=== PATIENT | female | born 1975 | race African-American/Black ===

== ENCOUNTER 2021-02-27 04:59 | Day surgery (SDC) | payer BC, OTHER ==
[2021-02-26 10:10] VITALS: BMI 31.6
[2021-02-27 08:27] VITALS: BP 128/80; PULSE 87; TEMP 98.6
== END 2021-02-27 09:15 | disposition home or self-care (01) ==
LOC: JASUSAT 04:59
PROVIDERS: ATTEND Radiology Diagnostic Radiology
DX: Z53.8 Procedure and treatment not carried out for other reasons (principal)
CPT/HCPCS: 81025

== ENCOUNTER 2021-03-07 04:58 | Day surgery (SDC) | payer BC, OTHER ==
[2021-03-02 16:43] VITALS: BMI 31.6
[2021-03-07] MEDS ORDERED: SODIUM CHLORIDE 500 ML IV ONE (14:15)
[2021-03-07] MEDS ORDERED: MIDAZOLAM HCL 2 MG/2 ML SINGLE DOSE VIAL IVPUSH ONE ×3 (14:20→15:18)
[2021-03-07] MEDS ORDERED: KETOROLAC TROMETHAMINE 30 MG/1 ML VIAL IVPUSH ONE ×2 (14:45→15:42)
[2021-03-07] MEDS ORDERED: SODIUM CHLORIDE 1,000 ML IV SCH (15:50)
[2021-03-07] MEDS ORDERED: HYDROmorphone HCl 2 MG/ML VIAL IVPUSH ONE (15:57)
[2021-03-07] MEDS ORDERED: HYDROmorphone *PCA* 10MG/50ML DISP.SYRIN ONE (16:24)
[2021-03-07] MEDS: HYDROmorphone *PCA* 10MG/50ML DISP.SYRIN PCA SCH ×2 (16:30→23:22)
[2021-03-07] MEDS ORDERED: ONDANSETRON 4 MG/2 ML VIAL ONE (17:08)
[2021-03-07] MEDS: ONDANSETRON 4 MG/2 ML VIAL IVPUSH PRN ×2 (17:25→19:53)
[2021-03-07] MEDS ORDERED: ACETAMINOPHEN 325 MG TABLET (FP) PO PRN (18:27)
[2021-03-08] MEDS: ONDANSETRON 4 MG/2 ML VIAL IVPUSH PRN (01:09)
[2021-03-08 09:02] VITALS: BP 118/72; PULSE 110; TEMP 99.4
[2021-03-08] MEDS ORDERED: HYDROCHLOROTHIAZIDE 12.5 MG CAPSULE (FP) PO SCH (10:00)
[2021-03-08] MEDS ORDERED: VALSARTAN 80 MG TABLET PO SCH (10:00)
[2021-03-08] MEDS ORDERED: PCA PUMP NR ONE (10:54)
[2021-03-08] MEDS ORDERED: PATIENT'S OWN MEDICATION (NON-FORMULARY) (Valsartan/Hydrochlorothiazide [Valsartan-Hctz 80 PO SCH (12:00)
[2021-03-08] MEDS ORDERED: amLODIPine BESYLATE 10 MG TABLET (FP) PO SCH (12:00)
== END 2021-03-08 14:59 | disposition home or self-care (01) ==
LOC: JASUSAT 04:58 → SUATTDRO 04:58 → JASUSAT 18:12 → J8W 18:12 → JASUSAT 03-08 14:59
PROVIDERS: ATTEND Internal Medicine
PROC: 04LE3DT Occlusion of Right Uterine Artery with Intraluminal Device, Percutaneous Approach (ICD-10-PCS; 2021-03-07)
PROC: 04LF3DU Occlusion of Left Uterine Artery with Intraluminal Device, Percutaneous Approach (ICD-10-PCS; principal; 2021-03-07 13:00)
DX: D25.9 Leiomyoma of uterus, unspecified (principal); N93.8 Other specified abnormal uterine and vaginal bleeding
CPT/HCPCS: 37243; 81025; 94760